=== PATIENT | female | born 1975 | race African-American/Black ===

== ENCOUNTER 2019-12-02 12:14 | Emergency (ER) | payer BC ==
[~2019-12-02] VITALS: Ht 162.6 cm; Wt 91.0 kg
[2019-12-02 12:49] VITALS: BP 130/71
== END 2019-12-02 15:48 | disposition home or self-care (01) ==
LOC: ER 12:14
DX: H60.91 Unspecified otitis externa, right ear (principal); Z87.19 Personal history of other diseases of the digestive system
CPT/HCPCS: 99281